=== PATIENT | female | born 1995 | race Caucasian/White ===

== ENCOUNTER → 2021-04-25 | Outpatient (CLI) | payer OTHER ==
[~2021-04-25] MED LIST: CYCL10 PO; FAMO20 PO; FEXO60 PO; IBUP400 PO; IBUP800 PO; MECL25 PO; RANI150 PO; RXCYCL10 PO
[2021-04-26 11:07] LABS: Candida species (DNA Probe) Negative (NEGATIVE); G. vaginalis (DNA Probe) Positive (NEGATIVE); T. vaginalis (DNA Probe) Negative (NEGATIVE)
[2021-04-26 19:06] LABS: CHLAMYDIA TRACHOMATIS, NAA Negative (Negative)
== END | disposition home or self-care (01) ==
LOC: LAB 14:58 → LAB SHORT 14:58
PROVIDERS: Advanced Practice Midwife
DX: Z01.419 Encounter for gynecological examination (general) (routine) without abnormal findings (principal); Z11.3 Encounter for screening for infections with a predominantly sexual mode of transmission; N76.0 Acute vaginitis
CPT/HCPCS: 87480; 87491; 87510; 87591; 87660; G0123

== ENCOUNTER → 2021-06-06 | Outpatient (CLI) | payer OTHER ==
[2021-06-07 11:02] LABS: Candida species (DNA Probe) Negative (NEGATIVE); G. vaginalis (DNA Probe) Negative (NEGATIVE); T. vaginalis (DNA Probe) Negative (NEGATIVE)
== END | disposition home or self-care (01) ==
LOC: LAB 16:26 → LAB SHORT 16:26
PROVIDERS: Advanced Practice Midwife
DX: N76.0 Acute vaginitis (principal)
CPT/HCPCS: 87480; 87510; 87660

== ENCOUNTER → 2022-04-10 | Outpatient (CLI) | payer BC, OTHER | END | disposition home or self-care (01) | LOC: LAB SHORT 15:15 → LAB 15:15 | DX: R30.0 Dysuria (principal) | CPT/HCPCS: 87086 ==

== ENCOUNTER → 2022-06-30 | Outpatient (CLI) | payer BC | LOC: LAB 11:10 → LAB SHORT 11:10 | DX: J02.9 Acute pharyngitis, unspecified (principal) | CPT/HCPCS: 87081 ==

== ENCOUNTER → 2023-06-04 | Outpatient (CLI) | payer BC ==
[~2023-06-04] MED LIST changes: +CARAFATE1 GM/10 M1 PO
[2023-06-04 17:03] LABS: Source, Urine Clean Catch
[2023-06-04 18:44] LABS: Bacteria Mod /hpf; Calcium Oxalate Crystals Few /hpf; Red Blood Cells, Urine 0-2 /hpf (0-2); Squamous Epithelial Cells Few /hpf (Few)
== END ==
LOC: LAB SHORT 17:00 → LAB 17:00
PROVIDERS: Advanced Practice Midwife
DX: Z34.01 Encounter for supervision of normal first pregnancy, first trimester (principal)
CPT/HCPCS: 81015; 87086

== ENCOUNTER → 2023-07-11 | Outpatient (CLI) | payer BC ==
[2023-07-11 19:42] LABS: Hemoglobin 13.1 g/dL (11.5-16.0); Mean Corpuscular HGB 29.4 pg (26.0-34.0); Mean Corpuscular HGB Conc 34.5 g/dL (31.5-36.5); Mean Corpuscular Volume 85 fL (80-100); Mean Platelet Volume 10.7 fL (9.1-12.4); Platelet Count 205 K/mm3 (150-400); RDW Coefficient Variation 13.2 % (11.7-14.2); RDW Standard Deviation 41.4 fL (35.1-46.3); Red Blood Cell Count 4.46 M/mm3 (3.80-5.20); White Blood Cell Count 7.01 K/mm3 (4.00-11.30)
[2023-07-11 20:09] LABS: BAND PERCENT MAN 9 % (0-8); BASOPHILS ABSOLUTE MAN 0.07 K/mm3 (0.00-0.23); BASOPHILS PERCENT MAN 1 % (0-2); EOSINOPHILS PERCENT MAN 0 % (0-6); LYMPHOCYTES ABSOLUTE MAN 0.28 K/mm3 (0.84-5.20); LYMPHOCYTES PERCENT MAN 4 % (21-46); MONOCYTES ABSOLUTE MAN 0.77 K/mm3 (0.16-1.47); MONOCYTES PERCENT MAN 11 % (4-13); NEUTROPHILS ABSOLUTE MAN 5.88 K/mm3 (1.96-9.15); SEG NEUTROPHILS PERCENT MAN 75 % (41-73); TOTAL CELLS COUNTED 100
[2023-07-14 15:07] LABS: A/G RATIO 1.8 (1.2-2.2); BILIRUBIN, TOTAL 0.2 mg/dL (0.0-1.2); CALCIUM, SERUM 9.4 mg/dL (8.7-10.2); CREATININE, SERUM 0.69 mg/dL (0.57-1.00); GLOBULIN, TOTAL 2.5 g/dL (1.5-4.5); POTASSIUM, SERUM 3.6 mmol/L (3.5-5.2); PROTEIN, TOTAL, SERUM 6.9 g/dL (6.0-8.5)
== END ==
LOC: LAB 18:49 → LAB SHORT 18:49
PROVIDERS: Nurse Practitioner Family
DX: G43.009 Migraine without aura, not intractable, without status migrainosus (principal); M54.9 Dorsalgia, unspecified
CPT/HCPCS: 80053; 85025; 87086

== ENCOUNTER → 2023-07-31 | Outpatient (CLI) | payer BC ==
[2023-08-02 08:45] LABS: FAMILY HX NEURAL TUBE DEFECT No; INSULIN REQ MATERNAL DIABETES No; MATERNAL AGE AT DELIVERY 30.6 yr; MATERNAL SCREEN INTERPRETATION Screen Neg; MATERNAL WEIGHT 127.0 lbs.; PATIENT'S AFP 44 ng/mL; SMOKING No
== END ==
LOC: LAB SHORT 15:41 → LAB 15:41
PROVIDERS: Advanced Practice Midwife
DX: O09.92 Supervision of high risk pregnancy, unspecified, second trimester (principal)
CPT/HCPCS: 82105

== ENCOUNTER → 2023-12-18 | Outpatient (CLI) | payer BC ==
[2023-12-18 16:47] LABS: Bacterial Vaginosis PCR Negative (NEGATIVE); Candida Group, PCR NOT DETECTED (NOT DETECT)
[2023-12-18 17:45] LABS: Candida glabrata-krusei, PCR DETECTED (NOT DETECT)
== END | disposition home or self-care (01) ==
LOC: LAB 12:00 → LAB SHORT 12:00
PROVIDERS: Advanced Practice Midwife
DX: O26.892 Other specified pregnancy related conditions, second trimester (principal); N94.10 Unspecified dyspareunia; O09.92 Supervision of high risk pregnancy, unspecified, second trimester
CPT/HCPCS: 87081; 87150; 87481; 87661; 87801

== ENCOUNTER 2023-12-29 17:25 | Inpatient (IN) | payer BC, OTHER ==
[~2023-12-29] VITALS: Ht 152.4 cm; Wt 71.0 kg
[2023-12-29] MEDS ORDERED: FentaNYL 2mcg/ml-Bup 0.1% Epd 250 ML EPI PRN (17:50)
[2023-12-29] MEDS ORDERED: Misoprostol 200 MCG Tab PR PRN (17:50)
[2023-12-29] MEDS ORDERED: Oxytocin 10 Unit / ML Vial IM PRN (17:50)
[2023-12-29] MEDS ORDERED: Carboprost Tromethamine 250 MCG/ML 1ML Amp IM PRN (17:50)
[2023-12-29] MEDS ORDERED: Lactated Ringer's 1,000 ML IV SCH ×2 (17:50)
[2023-12-29] MEDS ORDERED: Acetaminophen 500 MG Tab PO PRN ×2 (17:50)
[2023-12-29] MEDS ORDERED: OXYTOCIN/RINGER'S LACTATE 500 ML IV SCH (17:50)
[2023-12-29] MEDS ORDERED: FentaNYL Citrate 50 MCG/ML 2 ML Injection IV PRN ×2 (17:50→18:20)
[2023-12-29] MEDS ORDERED: Methylergonovine Maleate 0.2MG / ML 1ML Amp IM PRN (17:50)
[2023-12-29] MEDS ORDERED: Misoprostol 200 MCG Tab XX PRN (17:50)
[2023-12-29] MEDS ORDERED: Ondansetron HCl 2 MG / ML 2ML Vial IV PRN ×2 (17:50→18:20)
[2023-12-29] MEDS ORDERED: ePHEDrine Sulfate 50 MG/ML 1ML Injection XX PRN (17:50)
[2023-12-29] MEDS ORDERED: Lactated Ringer's 1,000 ML IV PRN (17:50)
[2023-12-29] MEDS ORDERED: Calcium Carbonate 500 MG Tab Chew PO PRN ×3 (17:50→18:20)
[2023-12-29] MEDS ORDERED: Tranexamic Acid 1,000 MG in NS 100 ML IV SCH (17:50)
[2023-12-29 18:00] VITALS: BP 119/78
[2023-12-29 18:05] LABS: BASOPHILS ABSOLUTE AUTO 0.04 K/mm3 (0.00-0.23); BASOPHILS PERCENT AUTO 0 % (0-2); EOSINOPHILS ABSOLUTE AUTO 0.06 K/mm3 (0.00-0.68); EOSINOPHILS PERCENT AUTO 1 % (0-6); Hematocrit 37.1 % (33.0-51.0); Hemoglobin 13.2 g/dL (11.5-16.0); IMMATURE GRAN ABSOLUTE AUTO 0.05 K/mm3 (0.00-0.10); IMMATURE GRAN PERCENT AUTO 1 % (0-1); LYMPHOCYTES PERCENT AUTO 22 % (21-46); MONOCYTES ABSOLUTE AUTO 0.67 K/mm3 (0.16-1.47); MONOCYTES PERCENT AUTO 7 % (4-13); Mean Corpuscular HGB 30.5 pg (26.0-34.0); Mean Corpuscular HGB Conc 35.6 g/dL (31.5-36.5); Mean Corpuscular Volume 86 fL (80-100); Mean Platelet Volume 12.1 fL (9.1-12.4); NEUTROPHILS ABSOLUTE AUTO 7.21 K/mm3 (1.96-9.15); NEUTROPHILS PERCENT AUTO 71 % (41-73); Platelet Count 181 K/mm3 (150-400); RDW Coefficient Variation 13.2 % (11.7-14.2); RDW Standard Deviation 40.6 fL (35.1-46.3); Red Blood Cell Count 4.33 M/mm3 (3.80-5.20); White Blood Cell Count 10.23 K/mm3 (4.00-11.30)
[2023-12-29] MEDS ORDERED: PRENATAL TABLE1 EAC2 PO ×2 (18:14)
[2023-12-29] MEDS ORDERED: FAMO20 PO ×2 (18:15)
[2023-12-29] MEDS ORDERED: ALBU90OI INH ×2 (18:17)
[2023-12-29] MEDS ORDERED: FLUT1DIS5 INH ×2 (18:17)
[2023-12-29] MEDS ORDERED: Acetaminophen 325 MG TABLET PO PRN (18:20)
[2023-12-29 18:26] LABS: Albumin, Blood 3.1 g/dL (3.4-5.0); Albumin/Globulin Ratio 0.8 (0.8-1.8); Bilirubin, Total 0.2 mg/dL (0.1-1.0); Bun/Creatinine Ratio 11.2 (12.0-20.0); Calcium, Blood 9.2 mg/dL (8.5-10.1); Creatinine, Blood 0.81 mg/dL (0.40-1.00); Globulin, Blood 4.1 g/dL (2.2-4.0); Potassium, Blood 3.7 mmol/L (3.5-5.5); Total Protein, Blood 7.2 g/dL (6.4-8.2)
[2023-12-29] MEDS ORDERED: Zolpidem Tartrate 10 MG Tab PO PRN (18:35)
[2023-12-29 19:15] VITALS: BP 123/86
[2023-12-29 19:35] LABS: Creatinine, Urine Random 61.6 mg/dL (27.00-270.00); Protein, Urine Random 25.5 mg/dL (0.0-11.9); Protein/Creat Ratio, Ur Random 0.4
[2023-12-29 20:08] VITALS: BP 145/72
[2023-12-29 21:17] VITALS: BP 141/84
[2023-12-29 23:16] VITALS: BP 142/77
[2023-12-29 23:23] VITALS: BP 124/71
[2023-12-30] VITALS (37 sets, daily range): BP systolic 99–166; BP diastolic 63–104
[2023-12-30] MEDS ORDERED: OXYTOCIN/RINGER'S LACTATE 500 ML IV SCH ×2 (05:00→16:30)
[2023-12-30] MEDS ORDERED: Misoprostol 200 MCG Tab PR PRN (16:25)
[2023-12-30] MEDS ORDERED: Benzocaine Topical Anesthetic Spray 60GM TOP PRN (16:30)
[2023-12-30] MEDS ORDERED: Witch Hazel/Glycerin PADS TOP PRN (16:30)
[2023-12-30] MEDS ORDERED: Acetaminophen 325 MG TABLET PO PRN (16:30)
[2023-12-30] MEDS ORDERED: Lanolin Cream TOP PRN (16:30)
[2023-12-30] MEDS ORDERED: Methylergonovine Maleate 0.2MG / ML 1ML Amp IM PRN (16:30)
[2023-12-30] MEDS ORDERED: Ibuprofen 400 MG Tab PO PRN (16:30)
[2023-12-30] MEDS ORDERED: Lactated Ringer's 1,000 ML IV SCH (16:35)
[2023-12-30] MEDS ORDERED: Rho(D) Immune Globulin 300 MCG / SYR IM ONE (16:35)
[2023-12-30] MEDS ORDERED: Docusate Sodium 100 MG Cap PO PRN (16:35)
[2023-12-30] MEDS ORDERED: Ketorolac Tromethamine 30mg Vial IV PRN (17:00)
[2023-12-30] MEDS ORDERED: Ketorolac Tromethamine 30mg Vial IV ONE (17:00)
--- NOTE | 2023-12-30 19:11 | NUR ---
REPORT TO ELIZABETH LAWSON. MOTHER HAS NO COMPLAINTS. WAS NOT ABLE TO VOID SO WILL GET UP AD TRY AGAIN SOON. LOCHIA SCANT. DENIES PAIN. STABLE
[2023-12-31 03:29] VITALS: BP 119/75
[2023-12-31 05:57] LABS: Hemoglobin 9.6 g/dL (11.5-16.0); Mean Corpuscular HGB 30.2 pg (26.0-34.0); Mean Corpuscular HGB Conc 34.3 g/dL (31.5-36.5); Mean Corpuscular Volume 88 fL (80-100); Mean Platelet Volume 11.6 fL (9.1-12.4); Platelet Count 135 K/mm3 (150-400); RDW Coefficient Variation 13.4 % (11.7-14.2); RDW Standard Deviation 43.1 fL (35.1-46.3); Red Blood Cell Count 3.18 M/mm3 (3.80-5.20); White Blood Cell Count 18.02 K/mm3 (4.00-11.30)
[2023-12-31 06:33] LABS: Albumin, Blood 2.2 g/dL (3.4-5.0); Albumin/Globulin Ratio 0.7 (0.8-1.8); Bilirubin, Total 0.3 mg/dL (0.1-1.0); Bun/Creatinine Ratio 11.2 (12.0-20.0); Creatinine, Blood 0.89 mg/dL (0.40-1.00); Globulin, Blood 3.1 g/dL (2.2-4.0); Total Protein, Blood 5.3 g/dL (6.4-8.2)
[2023-12-31 07:26] VITALS: BP 128/86
[2023-12-31] MEDS ORDERED: Prenatal Vit/FE Fumarate/FA 1 Tab PO SCH (09:00)
[2023-12-31 11:01] VITALS: BP 123/82
[2023-12-31 16:28] VITALS: BP 119/76
[2024-01-01 22:13] VITALS: BP 138/83
[2024-01-01 22:28] VITALS: BP 147/89
== END 2023-12-31 17:45 | disposition home or self-care (01) | DRG 807 ==
LOC: OBS 17:25 → BC 17:28 → OBS 17:32 → BC 17:34
PROVIDERS: ADMIT Advanced Practice Midwife
PROC: 10E0XZZ Delivery of Products of Conception, External Approach (ICD-10-PCS; principal; 2023-12-30)
PROC: 0UQMXZZ Repair Vulva, External Approach (ICD-10-PCS; 2023-12-30)
PROC: 3E0R3BZ Introduction of Anesthetic Agent into Spinal Canal, Percutaneous Approach (ICD-10-PCS; 2023-12-30)
PROC: 00HU33Z Insertion of Infusion Device into Spinal Canal, Percutaneous Approach (ICD-10-PCS; 2023-12-30)
PROC: 10907ZC Drainage of Amniotic Fluid, Therapeutic from Products of Conception, Via Natural or Artificial Opening (ICD-10-PCS; 2023-12-30)
PROC: 0U7C7ZZ Dilation of Cervix, Via Natural or Artificial Opening (ICD-10-PCS; 2023-12-30)
DX: O99.344 Other mental disorders complicating childbirth (principal); Z37.0 Single live birth; F41.8 Other specified anxiety disorders; O14.94 Unspecified pre-eclampsia, complicating childbirth; Z3A.38 38 weeks gestation of pregnancy; F90.9 Attention-deficit hyperactivity disorder, unspecified type; O99.52 Diseases of the respiratory system complicating childbirth; J45.909 Unspecified asthma, uncomplicated; O70.0 First degree perineal laceration during delivery; O99.02 Anemia complicating childbirth; Z98.890 Other specified postprocedural states
CPT/HCPCS: 36415; 51702; 59200; 80053; 82570; 84156; 85025; 85027; 86850; 86870; 86900; 86901; A9270; J1885; J2405; J2590; J3010; J7120

== ENCOUNTER 2024-01-01 20:11 | Emergency (ER) | payer BC, OTHER ==
[~2024-01-01] VITALS: Ht 152.4 cm; Wt 70.3 kg
[~2024-01-01 20:11] MED LIST changes: +ALBU90OI INH; +FLUT1DIS5 INH; +PRENATAL TABLE1 EAC2 PO
[2024-01-01] MEDS ORDERED: Labetalol HCL 5 MG/ML 4ML Injection (Single Dose) IV ONE (20:20)
[2024-01-01] MEDS ORDERED: Ondansetron HCl 2 MG / ML 2ML Vial IV ONE ×2 (20:35→20:40)
[2024-01-01 20:36] LABS: BASOPHILS ABSOLUTE AUTO 0.05 K/mm3 (0.00-0.23); BASOPHILS PERCENT AUTO 0 % (0-2); EOSINOPHILS ABSOLUTE AUTO 0.21 K/mm3 (0.00-0.68); EOSINOPHILS PERCENT AUTO 2 % (0-6); Hematocrit 34.3 % (33.0-51.0); Hemoglobin 11.7 g/dL (11.5-16.0); IMMATURE GRAN ABSOLUTE AUTO 0.11 K/mm3 (0.00-0.10); IMMATURE GRAN PERCENT AUTO 1 % (0-1); LYMPHOCYTES ABSOLUTE AUTO 3.13 K/mm3 (0.84-5.20); LYMPHOCYTES PERCENT AUTO 25 % (21-46); MONOCYTES ABSOLUTE AUTO 0.78 K/mm3 (0.16-1.47); MONOCYTES PERCENT AUTO 6 % (4-13); Mean Corpuscular HGB 30.6 pg (26.0-34.0); Mean Corpuscular HGB Conc 34.1 g/dL (31.5-36.5); Mean Corpuscular Volume 90 fL (80-100); Mean Platelet Volume 11.1 fL (9.1-12.4); NEUTROPHILS ABSOLUTE AUTO 8.28 K/mm3 (1.96-9.15); NEUTROPHILS PERCENT AUTO 66 % (41-73); Platelet Count 169 K/mm3 (150-400); RDW Coefficient Variation 13.6 % (11.7-14.2); RDW Standard Deviation 43.8 fL (35.1-46.3); Red Blood Cell Count 3.82 M/mm3 (3.80-5.20); White Blood Cell Count 12.56 K/mm3 (4.00-11.30)
[2024-01-01] MEDS ORDERED: Ketorolac Tromethamine 30mg Vial IV ONE (20:40)
[2024-01-01 20:58] LABS: Alanine Aminotransfer (ALT/SGP 64 U/L (12-78); Albumin/Globulin Ratio 0.8 (0.8-1.8); Alk Phos 116 U/L (50-136); Anion Gap 15 mmol/L (3-11); Aspartate Aminotrans (AST/SGOT 82 U/L (12-37); Bilirubin, Direct <0.1 mg/dL (0.0-0.3); Bilirubin, Total 0.3 mg/dL (0.1-1.0); Blood Urea Nitrogen 7 mg/dL (8-24); Bun/Creatinine Ratio 9.1 (12.0-20.0); CO2, Blood 24 mmol/L (21-32); Calcium, Blood 8.8 mg/dL (8.5-10.1); Chloride, Blood 108 mmol/L (98-108); Creatinine, Blood 0.77 mg/dL (0.40-1.00); Glomerular Filtration Rate 106 (60-); Glucose, Blood 102 mg/dL (70-99); Potassium, Blood 3.7 mmol/L (3.5-5.5); Sodium, Blood 143 mmol/L (136-145)
[2024-01-01 21:45] VITALS: BP 117/81
[2024-01-01] MEDS ORDERED: Magnesium Sul 4 GM/Water100 ML 100 ML IV ONE (21:45)
[2024-01-01] MEDS ORDERED: Magnesium Sulfate 500 ML IV SCH (22:20)
[2024-01-01] MEDS ORDERED: Calcium Gluconate 0.465 mEq/ml 10 ml Vial IV PRN (22:20)
[2024-01-01] MEDS ORDERED: Lactated Ringer's 1,000 ML IV SCH (22:20)
== END 2024-01-01 21:55 | disposition other institution (70) ==
LOC: ER 20:11
PROVIDERS: Physician Assistant
DX: O14.95 Unspecified pre-eclampsia, complicating the puerperium (principal); O99.893 Other specified diseases and conditions complicating puerperium; R10.11 Right upper quadrant pain; Z79.899 Other long term (current) drug therapy; O99.53 Diseases of the respiratory system complicating the puerperium; J45.909 Unspecified asthma, uncomplicated
CPT/HCPCS: 76705; 80053; 82248; 85025; 93005; 93010; 96374; 96375; 99285-25; J1885; J2405; J3475

== ENCOUNTER 2024-01-01 22:20 | Inpatient (IN) | payer BC, OTHER ==
[~2024-01-01] VITALS: Ht 165.1 cm; Wt 70.9 kg
[2024-01-01] MEDS ORDERED: Magnesium Sulfate 500 ML IV SCH (22:40)
[2024-01-01] MEDS ORDERED: Calcium Gluconate 0.465 mEq/ml 10 ml Vial IV PRN (22:40)
[2024-01-01] MEDS ORDERED: Lactated Ringer's 1,000 ML IV SCH (22:40)
[2024-01-01 22:43] VITALS: BP 132/83
[2024-01-01 22:58] VITALS: BP 127/80
[2024-01-01 23:13] VITALS: BP 121/76
[2024-01-01 23:43] VITALS: BP 127/83
[2024-01-01 23:58] VITALS: BP 119/78
[2024-01-02] VITALS (20 sets, daily range): BP systolic 111–155; BP diastolic 76–99
[2024-01-02 00:20] LABS: Creatinine, Urine Random 34.8 mg/dL (27.00-270.00); Protein, Urine Random 28.1 mg/dL (0.0-11.9); Protein/Creat Ratio, Ur Random 0.8
--- NOTE | 2024-01-02 00:55 | NUR ---
LATE ENTRY- ASSUMED CARE OF PT FROM [facility]EN[facility] CASH. BEDSIDE REPORT RECEIVED. PT PRESENTED TO ED EARLIER THIS EVENING WITH C/O UPPER ABD PAIN BLE SWELLING AND SEVERE RANGE BP. SEVERE HTN PROTOCOL WAS INITIATED AND PT RECIEVED LABETALOL 20MG IV IN ED AND WAS THEN ADMITTED TO [facility] FOR MAGNESIUM SULFATE GTT. PT STATES HER EPIGASTRIC PAIN IS GONE AT THIS TIME, PATELLAR REFLEXES 3+, 1+ PITTING EDEMA APPROX 3/4 UP BLE.
[2024-01-02 00:57] LABS: BASOPHILS ABSOLUTE AUTO 0.05 K/mm3 (0.00-0.23); BASOPHILS PERCENT AUTO 0 % (0-2); EOSINOPHILS ABSOLUTE AUTO 0.15 K/mm3 (0.00-0.68); EOSINOPHILS PERCENT AUTO 1 % (0-6); Hematocrit 28.2 % (33.0-51.0); Hemoglobin 9.7 g/dL (11.5-16.0); IMMATURE GRAN PERCENT AUTO 1 % (0-1); LYMPHOCYTES ABSOLUTE AUTO 2.75 K/mm3 (0.84-5.20); LYMPHOCYTES PERCENT AUTO 19 % (21-46); MONOCYTES PERCENT AUTO 5 % (4-13); Mean Corpuscular HGB 30.9 pg (26.0-34.0); Mean Corpuscular HGB Conc 34.4 g/dL (31.5-36.5); Mean Corpuscular Volume 90 fL (80-100); Mean Platelet Volume 10.4 fL (9.1-12.4); NEUTROPHILS ABSOLUTE AUTO 10.71 K/mm3 (1.96-9.15); NEUTROPHILS PERCENT AUTO 74 % (41-73); Platelet Count 142 K/mm3 (150-400); RDW Coefficient Variation 13.6 % (11.7-14.2); RDW Standard Deviation 44.4 fL (35.1-46.3); Red Blood Cell Count 3.14 M/mm3 (3.80-5.20); White Blood Cell Count 14.46 K/mm3 (4.00-11.30)
--- NOTE | 2024-01-02 01:22 | NUR ---
DR HENSON UPDATED BY PHONE WITH CURRENT LAB RESULTS, PT REPORT OF IMPROVED EPIGASTRIC PAIN, VSS, APPROPRIATE UO. CONFIRMED PT MAY HAVE REGULAR DIET, Q1 HOUR VS, AND BATHROOM PRIVILEGES. PRN MEDICATION ORDERS ALSO RECEIVED.
[2024-01-02 01:24] LABS: Albumin, Blood 2.6 g/dL (3.4-5.0); Albumin/Globulin Ratio 0.8 (0.8-1.8); Bilirubin, Total 0.4 mg/dL (0.1-1.0); Bun/Creatinine Ratio 8.2 (12.0-20.0); Calcium, Blood 8.1 mg/dL (8.5-10.1); Creatinine, Blood 0.73 mg/dL (0.40-1.00); Globulin, Blood 3.3 g/dL (2.2-4.0); Potassium, Blood 3.6 mmol/L (3.5-5.5); Total Protein, Blood 5.9 g/dL (6.4-8.2)
[2024-01-02 01:27] LABS: International Normalized Ratio 0.81; Prothrombin Time Results 8.8 Sec (9.7-11.5)
[2024-01-02] MEDS ORDERED: Ketorolac Tromethamine 30mg Vial IV PRN (01:55)
[2024-01-02] MEDS ORDERED: Acetaminophen 500 MG Tab PO PRN (01:55)
[2024-01-02] MEDS ORDERED: Ondansetron HCl 2 MG / ML 2ML Vial IV PRN (01:55)
[2024-01-02] MEDS ORDERED: Calcium Carbonate 500 MG Tab Chew PO PRN (01:55)
[2024-01-02] MEDS ORDERED: Labetalol HCL 100 MG TAB PO ONE (20:25)
[2024-01-02] MEDS ORDERED: HydrOXYzine Pamoate 25 MG Cap PO ONE (20:25)
--- NOTE | 2024-01-02 20:40 | NUR ---
2001-PT STATES SHE FEEL TIGHTNESS IN HER CHEST AND IS HARD TO TAKE DEEP BREATHS. RN PLACES PULSE OX ON SPO2 RANGES FROM 95%-98%. RN LISTENS TO LUNGS AND THEY SOUND CLEAR. PT STATES THAT THE TIGHTNING ALMOST FEELS THE SAME WHE SHE HAS ASTHMA PROBLEMS. RN CHECKS WITH INTERLINE CLERK AND IS GOOD WITH THE IDEA FOR PT TO TAKE INHALER. 2006- PT TAKES 2 PUFFS OF INHALER. 2014-PT STATES SHE FEELS LIKE IT DID NOT WORK AND IS GETTING EMOTIONAL AND EXPLAINS SHE FEELS ANXIOUS AND HAS HISTORY OF ANXIETY. 2019- RN CALLS DR THAPA WITH PT UPDATE ON B/P, CHEST TIGHTNESS, AND ANXITY. DR THAPA GIVES ORDERS FOR 25MG OF HYDROXYZINE FOR PT'S ANXIETY, 100MG OF LABETALOL FOR THE HIGHER B/P'S, AND TO ORDER A MAG LEVEL ON PT IF TIGHTNING IN CHEST DOES NOT GO AWAY.
--- NOTE | 2024-01-02 21:41 | NUR ---
213- MAG TURNED OFF
[2024-01-03 00:06] VITALS: BP 119/78
[2024-01-03 02:00] VITALS: BP 126/80
[2024-01-03 04:01] VITALS: BP 127/81
[2024-01-03 06:04] VITALS: BP 119/73
[2024-01-03 06:28] LABS: Hematocrit 29.3 % (33.0-51.0); Hemoglobin 9.8 g/dL (11.5-16.0); Mean Corpuscular HGB 30.3 pg (26.0-34.0); Mean Corpuscular HGB Conc 33.4 g/dL (31.5-36.5); Mean Corpuscular Volume 91 fL (80-100); Mean Platelet Volume 10.5 fL (9.1-12.4); Platelet Count 147 K/mm3 (150-400); RDW Coefficient Variation 14.1 % (11.7-14.2); RDW Standard Deviation 46.1 fL (35.1-46.3); Red Blood Cell Count 3.23 M/mm3 (3.80-5.20); White Blood Cell Count 10.59 K/mm3 (4.00-11.30)
[2024-01-03 07:17] LABS: Albumin, Blood 2.7 g/dL (3.4-5.0); Albumin/Globulin Ratio 0.8 (0.8-1.8); Bilirubin, Total 0.3 mg/dL (0.1-1.0); Bun/Creatinine Ratio 8.5 (12.0-20.0); Calcium, Blood 6.2 mg/dL (8.5-10.1); Creatinine, Blood 0.82 mg/dL (0.40-1.00); Globulin, Blood 3.6 g/dL (2.2-4.0); Potassium, Blood 3.3 mmol/L (3.5-5.5); Total Protein, Blood 6.3 g/dL (6.4-8.2)
[2024-01-03 08:18] VITALS: BP 132/83
[2024-01-03] MEDS ORDERED: Ferrous Sulfate 325 MG Tab PO SCH (09:00)
[2024-01-03 10:37] VITALS: BP 122/78
== END 2024-01-03 11:00 | disposition home or self-care (01) | DRG 776 ==
LOC: BC 22:20
PROVIDERS: Family Medicine; ADMIT Obstetrics & Gynecology
DX: O14.15 Severe pre-eclampsia, complicating the puerperium (principal); O90.81 Anemia of the puerperium; R74.01 Elevation of levels of liver transaminase levels; O72.3 Postpartum coagulation defects; D69.6 Thrombocytopenia, unspecified; Z98.890 Other specified postprocedural states; Z79.899 Other long term (current) drug therapy; O99.893 Other specified diseases and conditions complicating puerperium; R10.11 Right upper quadrant pain; O99.53 Diseases of the respiratory system complicating the puerperium; J45.909 Unspecified asthma, uncomplicated
CPT/HCPCS: 36415; 76705; 80053; 82248; 82570; 83615; 84156; 85025; 85027; 85384; 85610; 85730; 93005; 93010; 96374; 96375; 99285-25; A9270; J1885; J2405; J3475; J7120; Q0177

== ENCOUNTER → 2024-03-18 | Outpatient (CLI) | payer BC, OTHER ==
[2024-03-26 16:56] LABS: HPV HIGH RISK BY TMA Not Detected; HPV SOURCE Cervical/Vag
== END | disposition home or self-care (01) ==
LOC: LAB SHORT 10:44 → LAB 10:44
PROVIDERS: Advanced Practice Midwife
DX: Z01.419 Encounter for gynecological examination (general) (routine) without abnormal findings (principal)
CPT/HCPCS: 87624; G0123

== ENCOUNTER → 2024-04-29 | Outpatient (CLI) | payer BC, OTHER ==
[2024-04-30 07:20] LABS: Bacterial Vaginosis PCR Negative (NEGATIVE); Candida Group, PCR NOT DETECTED (NOT DETECT); Candida glabrata-krusei, PCR NOT DETECTED (NOT DETECT)
== END ==
LOC: LAB SHORT 18:44 → LAB 18:44
PROVIDERS: Advanced Practice Midwife
DX: N76.0 Acute vaginitis (principal)
CPT/HCPCS: 87481; 87661; 87801

== ENCOUNTER 2025-03-22 10:00 | Emergency (ER) | payer OTHER, BC ==
[~2025-03-22] VITALS: Ht 152.4 cm; Wt 72.6 kg
[2025-03-22 10:25] VITALS: BP 145/91
[2025-03-22] MEDS ORDERED: Ketorolac Tromethamine 30mg Vial IM ONE (10:30)
== END 2025-03-22 10:50 | disposition home or self-care (01) ==
LOC: ER 10:00
DX: S56.911A Strain of unspecified muscles, fascia and tendons at forearm level, right arm, initial encounter (principal); J45.909 Unspecified asthma, uncomplicated; Z79.899 Other long term (current) drug therapy; X58.XXXA Exposure to other specified factors, initial encounter; Y99.0 Civilian activity done for income or pay
CPT/HCPCS: 96372; 99283-25; J1885